=== PATIENT | female | born 1950 | race Caucasian/White ===

== ENCOUNTER 2017-12-23 10:38 | Inpatient (IN) | payer MEDICARE, OTHER ==
[2017-12-23] MEDS: SOD CHLORIDE 0.9% 1,000 ML IV ×3 (10:56→16:39)
[2017-12-23 11:08] LABS: ABNORMAL IP MESSAGE 1; HEMATOCRIT 30.2 % (37.0-47.0); HEMOGLOBIN 9.5 g/dl (12.0-16.0); MEAN CORPUSCULAR HEMOGLOBIN 29.8 pg (29.0-33.0); MEAN CORPUSCULAR HGB CONC 31.5 g/dl (32.0-37.0); MEAN CORPUSCULAR VOLUME 94.7 fl (82.0-101.0); MEAN PLATELET VOLUME 11.1 fl (7.4-10.4); NUCLEATED RED BLOOD CELLS% 0.3 /100WBC (0.0-0.0); PLATELET COUNT 110 10^3/UL (140-415); RED BLOOD COUNT 3.19 10^6/ul (4.20-5.40); RED CELL DISTRIBUTION WIDTH 18.1 % (11.5-14.5)
[2017-12-23 11:08] LABS: WHITE BLOOD COUNT 26.1 10^3/ul (4.8-10.8)
[2017-12-23 11:18] LABS: POSITIVE DIFF @See below
[2017-12-23 11:19] LABS: ADD MAN DIFF? YES
[2017-12-23 11:28] LABS: ALANINE AMINOTRANSFERASE 28 IU/L (13-69); ALBUMIN 2.5 g/dl (3.3-4.9); ALBUMIN/GLOBULIN RATIO 0.62; ALKALINE PHOSPHATASE 1016 IU/L (42-121); ANION GAP 21 (8-16); BILIRUBIN,INDIRECT 0.5 mg/dl (0-1.1); BILIRUBIN,TOTAL 0.5 mg/dl (0.2-1.3); BLOOD UREA NITROGEN 16 mg/dl (7-20); CALCIUM 8.7 mg/dl (8.4-10.2); CARBON DIOXIDE 15 mmol/L (21-31); CHLORIDE 97 mmol/L (97-110); CREATININE 1.11 mg/dl (0.44-1.00); GLUCOSE 70 mg/dl (70-220); POTASSIUM 4.1 mmol/L (3.5-5.1); SODIUM 129 mmol/L (135-144); TOTAL PROTEIN 6.5 g/dl (6.1-8.1)
[2017-12-23] MEDS: FENTAnyl 50 MCG/ML VIAL IV ×2 (11:30→13:51)
[2017-12-23 11:41] LABS: ASPARTATE AMINO TRANSFERASE 89 IU/L (15-46)
[2017-12-23 11:44] LABS: TROPONIN-I 0.154 ng/ml (0.000-0.120)
[2017-12-23 11:51] LABS: INR 1.79; PROTIME 21.2 Sec (11.9-14.9); PT RATIO 1.7
[2017-12-23 11:52] LABS: PARTIAL THROMBOPLASTIN TIME 34.4 Sec (25.0-35.0)
[2017-12-23 11:55] LABS: ANISOCYTOSIS 2+ (0-0); BAND NEUTROPHILS #M 7.8 10^3/ul (0.0-0.6); BAND NEUTROPHILS % (M) 30 % (0-4); BURR CELLS 1+ (0-0); EOSINOPHILS % (M) 4 % (0-7); GIANT THROMBO% (M) 1 % (0-0); LYMPHOCYTES #M 0.7 10^3/ul (0.8-2.9); LYMPHOCYTES % (M) 3 % (15-51); MONOCYTE #M 0.2 10^3/ul (0.3-0.9); MONOCYTES % (M) 1 % (0-11); PLATELET ESTIMATE DECREASED; POIKILOCYTOSIS 2+ (0-0); POLYCHROMASIA 1+ (0-0); SEG NEUT #M 18.2 10^3/ul (1.6-7.5); SEGMENTED NEUTROPHILS (M) % 62 % (39-77)
[2017-12-23] MEDS: PIPER-TAZO 3.375 GM IV (PMX) 100 ML IVPB ×2 (13:38→13:54)
[2017-12-23] MEDS: SODIUM CHLORIDE 0.9% 1L BAG IV* (13:43)
[2017-12-23] MEDS: DEXTROSE 50% 50 ML SYRINGE IV (13:47)
[2017-12-23] MEDS: ASPIRIN 325 MG TAB PO (13:59)
[2017-12-23 14:53] LABS: ADD UMIC YES; UR ASCORBIC ACID NEGATIVE (NEGATIVE); UR BACTERIA FEW /HPF (NONE SEEN); UR BILIRUBIN (Dip) NEGATIVE (NEGATIVE); UR BLOOD (Dip) NEGATIVE (NEGATIVE); UR CLARITY SLIGHTLY CLOUDY (CLEAR); UR COLOR AMBER (YELLOW); UR GLUCOSE (Dip) NEGATIVE (NEGATIVE); UR KETONES (Dip) NEGATIVE (NEGATIVE); UR LEUKOCYTE ESTERASE (Dip) NEGATIVE Leu/ul (NEGATIVE); UR MUCUS FEW /HPF (NONE SEEN); UR NITRITE (Dip) NEGATIVE (NEGATIVE); UR RBC 1 /HPF (0-5); UR SPECIFIC GRAVITY (Dip) 1.019 (1.003-1.030); UR TOTAL PROTEIN (Dip) 1+ mg/dl (NEGATIVE); UR UROBILINOGEN (Dip) 1+ mg/dL (NEGATIVE); UR WBC 6 /HPF (0-5)
[2017-12-23] MEDS ORDERED: ACETAMINOPHEN 325 MG TAB PO (15:00)
[2017-12-23] MEDS ORDERED: ONDANSETRON 4 MG INJ IV (15:00)
[2017-12-23] MEDS: IODIXANOL LOCM 100 ML BTL (16:09)
[2017-12-23] MEDS: SOD CHLORIDE 0.9% 100 ML (16:09)
[2017-12-23] MEDS: VANCOMYCIN 1 GM (PMX) 250 ML IVPB (16:39)
[2017-12-23] MEDS ORDERED: SOD CHLORIDE 0.9% 1,000 ML IV (16:41)
[2017-12-23] MEDS ORDERED: MAGNESIUM HYDROXIDE 30ML CUP PO ×2 (17:00→19:00)
[2017-12-23] MEDS ORDERED: NACL 0.9% 3 ML SYG IV (17:00)
[2017-12-23] MEDS ORDERED: DOCUSATE SODIUM 100 MG CAP PO (17:00)
[2017-12-23] MEDS: CEFTRIAXONE 1 GM/50 ML (PMX) 50 ML IVPB (17:42)
[2017-12-23 18:45] LABS: LACTIC ACID 6.6 mmol/L (0.5-2.0)
[2017-12-23] MEDS: DEXTROSE 5%-0.9% NACL 1,000 ML IV (19:12)
[2017-12-24] MEDS: morphine 2 MG INJ IV (02:34)
[2017-12-24] MEDS: ACETAMINOPHEN 325 MG TAB PO (02:57)
[2017-12-24] MEDS: DEXTROSE 5%-0.9% NACL 1,000 ML IV ×3 (05:00→15:00)
[2017-12-24 06:17] LABS: ABNORMAL IP MESSAGE 1; HEMATOCRIT 23.9 % (37.0-47.0); HEMOGLOBIN 7.6 g/dl (12.0-16.0); MEAN CORPUSCULAR HEMOGLOBIN 29.5 pg (29.0-33.0); MEAN CORPUSCULAR HGB CONC 31.8 g/dl (32.0-37.0); MEAN CORPUSCULAR VOLUME 92.6 fl (82.0-101.0); MEAN PLATELET VOLUME 12.6 fl (7.4-10.4); NUCLEATED RED BLOOD CELLS% 0.2 /100WBC (0.0-0.0); PLATELET COUNT 57 10^3/UL (140-415); RED BLOOD COUNT 2.58 10^6/ul (4.20-5.40); RED CELL DISTRIBUTION WIDTH 18.7 % (11.5-14.5)
[2017-12-24 06:17] LABS: WHITE BLOOD COUNT 24.5 10^3/ul (4.8-10.8)
[2017-12-24 06:19] LABS: POSITIVE DIFF @See below
[2017-12-24 06:24] LABS: ADD MAN DIFF? YES
[2017-12-24 06:48] LABS: ANION GAP 12 (8-16); BLOOD UREA NITROGEN 14 mg/dl (7-20); CALCIUM 6.9 mg/dl (8.4-10.2); CARBON DIOXIDE 18 mmol/L (21-31); CHLORIDE 109 mmol/L (97-110); CREATININE 0.93 mg/dl (0.44-1.00); GLUCOSE 98 mg/dl (70-220); MAGNESIUM 1.8 mg/dl (1.7-2.5); PHOSPHORUS 5.3 mg/dl (2.5-4.9); POTASSIUM 4.1 mmol/L (3.5-5.1); SODIUM 135 mmol/L (135-144)
[2017-12-24] MEDS: PIPER-TAZO 3.375 GM IV (PMX) 100 ML IVPB ×3 (06:58→17:13)
[2017-12-24 07:01] LABS: TROPONIN-I 0.113 ng/ml (0.000-0.120)
[2017-12-24 07:37] LABS: LACTIC ACID 4.9 mmol/L (0.5-2.0)
[2017-12-24 07:44] LABS: ANISOCYTOSIS 1+ (0-0); GIANT THROMBO% (M) 1 % (0-0); SEGMENTED NEUTROPHILS (M) % 76 % (39-77)
[2017-12-24 08:06] LABS: BAND NEUTROPHILS #M 4.9 10^3/ul (0.0-0.6); BAND NEUTROPHILS % (M) 20 % (0-4); ERYTHROBLAST% (NRBC) (M) 1 % (0-0); LYMPHOCYTES #M 0.4 10^3/ul (0.8-2.9); LYMPHOCYTES % (M) 2 % (15-51); MONOCYTE #M 0.4 10^3/ul (0.3-0.9); MONOCYTES % (M) 2 % (0-11); PLATELET ESTIMATE SIG DECREASED; POIKILOCYTOSIS 1+ (0-0); SEG NEUT #M 19.8 10^3/ul (1.6-7.5); SMUDGE%M 8 % (0-0)
[2017-12-24] MEDS: metroNIDAZOLE 500 MG/NS (PMX) 100 ML IVPB ×2 (17:13→22:59)
[2017-12-25] MEDS: DEXTROSE 5%-0.9% NACL 1,000 ML IV ×3 (01:00→15:58)
[2017-12-25] MEDS: morphine 2 MG INJ IV ×4 (01:46→22:23)
[2017-12-25] MEDS: PIPER-TAZO 3.375 GM IV (PMX) 100 ML IVPB ×5 (02:51→23:56)
[2017-12-25] MEDS: metroNIDAZOLE 500 MG/NS (PMX) 100 ML IVPB ×3 (05:31→22:23)
[2017-12-25 06:32] LABS: ABNORMAL IP MESSAGE 1; HEMATOCRIT 24.3 % (37.0-47.0); HEMOGLOBIN 7.8 g/dl (12.0-16.0); MEAN CORPUSCULAR HEMOGLOBIN 29.3 pg (29.0-33.0); MEAN CORPUSCULAR HGB CONC 32.1 g/dl (32.0-37.0); MEAN CORPUSCULAR VOLUME 91.4 fl (82.0-101.0); RED BLOOD COUNT 2.66 10^6/ul (4.20-5.40); RED CELL DISTRIBUTION WIDTH 18.6 % (11.5-14.5)
[2017-12-25 06:36] LABS: POSITIVE DIFF @See below
[2017-12-25 06:38] LABS: ADD MAN DIFF? YES; PLATELET COUNT 21 10^3/UL (140-415)
[2017-12-25 07:26] LABS: ANION GAP 11 (8-16); BLOOD UREA NITROGEN 16 mg/dl (7-20); CALCIUM 6.9 mg/dl (8.4-10.2); CARBON DIOXIDE 18 mmol/L (21-31); CHLORIDE 111 mmol/L (97-110); CREATININE 0.72 mg/dl (0.44-1.00); GLUCOSE 131 mg/dl (70-220); SODIUM 137 mmol/L (135-144)
[2017-12-25 07:36] LABS: POTASSIUM 2.8 mmol/L (3.5-5.1)
[2017-12-25 07:49] LABS: ANISOCYTOSIS 1+ (0-0); BAND NEUTROPHILS #M 3.6 10^3/ul (0.0-0.6); BAND NEUTROPHILS % (M) 15 % (0-4); BURR CELLS 3+ (0-0); EOSINOPHILS % (M) 3 % (0-7); LYMPHOCYTES #M 0.4 10^3/ul (0.8-2.9); LYMPHOCYTES % (M) 2 % (15-51); MONOCYTE #M 0.2 10^3/ul (0.3-0.9); MONOCYTES % (M) 1 % (0-11); PLATELET ESTIMATE SIG DECREASED; POIKILOCYTOSIS 3+ (0-0); REACTIVE LYMPHOCYTES #M 0.2 10^3/ul (0.0-0.0); REACTIVE LYMPHOCYTES% (M) 1 % (0-0); SEG NEUT #M 19.6 10^3/ul (1.6-7.5); SEGMENTED NEUTROPHILS (M) % 78 % (39-77)
[2017-12-25] MEDS ORDERED: POTASSIUM CHLORIDE (SR) 20 MEQ TAB PO (08:00)
[2017-12-25] MEDS: POTASSIUM CHLORIDE 100 ML IVPB ×4 (09:39→19:01)
[2017-12-25] MEDS: HYDROCODONE/APAP (5/325) TAB PO (18:18)
[2017-12-26] MEDS: morphine 2 MG INJ IV ×2 (03:23→09:15)
[2017-12-26 05:38] LABS: ABNORMAL IP MESSAGE 1; HEMATOCRIT 22.8 % (37.0-47.0); HEMOGLOBIN 7.2 g/dl (12.0-16.0); MEAN CORPUSCULAR HEMOGLOBIN 28.8 pg (29.0-33.0); MEAN CORPUSCULAR HGB CONC 31.6 g/dl (32.0-37.0); MEAN CORPUSCULAR VOLUME 91.2 fl (82.0-101.0); RED CELL DISTRIBUTION WIDTH 18.8 % (11.5-14.5)
[2017-12-26 05:38] LABS: WHITE BLOOD COUNT 24.9 10^3/ul (4.8-10.8)
[2017-12-26] MEDS: PIPER-TAZO 3.375 GM IV (PMX) 100 ML IVPB ×3 (05:46→18:15)
[2017-12-26 06:01] LABS: ADD MAN DIFF? YES; PLATELET COUNT 10 10^3/UL (140-415); POSITIVE DIFF @See below
[2017-12-26] MEDS: metroNIDAZOLE 500 MG/NS (PMX) 100 ML IVPB (06:34)
[2017-12-26] MEDS: DEXTROSE 5%-0.9% NACL 1,000 ML IV ×3 (06:55→17:00)
[2017-12-26 08:00] LABS: ANISOCYTOSIS 2+ (0-0); BAND NEUTROPHILS #M 2.7 10^3/ul (0.0-0.6); BAND NEUTROPHILS % (M) 11 % (0-4); BURR CELLS 2+ (0-0); EOSINOPHILS % (M) 13 % (0-7); LYMPHOCYTES #M 1.4 10^3/ul (0.8-2.9); LYMPHOCYTES % (M) 6 % (15-51); PLATELET ESTIMATE SIG DECREASED; POIKILOCYTOSIS 1+ (0-0); POLYCHROMASIA 1+ (0-0); SEG NEUT #M 18.1 10^3/ul (1.6-7.5); SEGMENTED NEUTROPHILS (M) % 70 % (39-77); TARGET CELLS 2+ (0-0)
[2017-12-26 09:13] LABS: TYPE AND SCREEN 1 1
[2017-12-26] MEDS: HYDROCODONE/APAP (5/325) TAB PO (10:59)
[2017-12-26] MEDS: morphine LIQ (10 MG/5 ML) CUP PO (14:08)
[2017-12-27] MEDS: PIPER-TAZO 3.375 GM IV (PMX) 100 ML IVPB ×3 (00:23→11:14)
[2017-12-27] MEDS: HYDROCODONE/APAP (5/325) TAB PO ×3 (00:40→17:03)
[2017-12-27] MEDS: DEXTROSE 5%-0.9% NACL 1,000 ML IV ×2 (02:44→13:58)
[2017-12-27] MEDS: morphine LIQ (10 MG/5 ML) CUP PO ×2 (06:02→15:04)
[2017-12-27] MEDS: ONDANSETRON 4 MG INJ IV (15:09)
[2017-12-27] MEDS: morphine 2 MG INJ IV (22:14)
== END 2017-12-27 22:30 | DRG 871 ==
LOC: E/R 10:38 → 2NE 12-25 14:50 → 6WM 14:55
DX: A41.9 Sepsis, unspecified organism (principal); I21.A1 Myocardial infarction type 2; D65 Disseminated intravascular coagulation [defibrination syndrome]; C78.7 Secondary malignant neoplasm of liver and intrahepatic bile duct; E87.1 Hypo-osmolality and hyponatremia; N17.9 Acute kidney failure, unspecified; C25.9 Malignant neoplasm of pancreas, unspecified; I10 Essential (primary) hypertension; E78.5 Hyperlipidemia, unspecified; K21.9 Gastro-esophageal reflux disease without esophagitis; F32.9 Major depressive disorder, single episode, unspecified; M25.512 Pain in left shoulder; D63.8 Anemia in other chronic diseases classified elsewhere; K52.9 Noninfective gastroenteritis and colitis, unspecified
CPT/HCPCS: 36415; 36430; 70450; 74018; 74177; 80048; 80053; 81001; 82962; 83036; 83605; 83735; 84100; 84484; 85025; 85610; 85730; 86644; 86850; 86900; 86901; 86945; 87040; 87081; 87086; 93005; 96361; 96365; 96375; 96376; 99291-25